=== PATIENT | male | born 1990 ===

== ENCOUNTER 2021-01-09 10:48 | Emergency (ER) | payer OTHER, SELFPAY ==
--- NOTE | 2021-01-09 | ECG_ITS ---
Test Reason : CHEST PAIN Blood Pressure : / mmHG Vent. Rate : 071 BPM Atrial Rate : 071 BPM P-R Int : 134 ms QRS Dur : 088 ms QT Int : 358 ms P-R-T Axes : 044 074 052 degrees QTc Int : 389 ms Normal sinus rhythm with sinus arrhythmia Normal ECG When compared to the previous EKG of No significant changes seen Referred By: Generic ED Physician Electronically Signed By:Watson Drake
--- NOTE | ~2021-01-09 | CT_ITS ---
EXAMINATION: CT ANGIOGRAM OF THE CHEST WITH AND WITHOUT CONTRAST (CT PULMONARY ANGIOGRAM FOR PE) CLINICAL INFORMATION: Reason for Exam L sided pleuritic pain COMPARISON: Chest x-ray of same day TECHNIQUE: Prior to contrast administration, noncontrast localization images were obtained. Subsequently, multidetector volumetric imaging was performed from the thoracic inlet to below the diaphragms following the administration of 57 mL Omnipaque 350 intravenous contrast. No contrast reaction reported Sagittal, coronal, and MIP oblique sagittal reformatted images were obtained on the CT workstation, uploaded to PACS, and reviewed. This CT examination was performed using dose optimization techniques as appropriate, variously including the following: *Automated exposure control *Adjustment of mA and/or kV according to patient size (this includes techniques or standardized protocols for targeted exams where dose is matched to indication/reason for exam; i.e. extremities or head) *Use of iterative reconstruction technique Total exam dose-length product 258 mGy-cm FINDINGS: QUALITY OF STUDY/CONTRAST BOLUS: Suboptimal. PULMONARY ARTERIES: No central or segmental pulmonary emboli. THORACIC AORTA: No aneurysm or dissection. LUNG: Central airways are patent. No confluent parenchymal disease. No significant bronchial wall thickening. No bronchiectasis. Subpleural calcification is seen in the left lower lobe likely representing calcified granuloma. PLEURA: No pleural effusion or pneumothorax. MEDIASTINUM: Normal heart size. No pericardial effusion. No hilar or mediastinal lymphadenopathy. No evidence of septal bowing or right heart strain. Visualized thyroid gland unremarkable. CHEST WALL/AXILLA: No internal mammary lymphadenopathy. There are prominent axillary lymph nodes seen bilaterally the largest measuring approximately 1 cm in short axis. OSSEOUS STRUCTURES: No acute or suspicious osseous abnormality. UPPER ABDOMEN: Unremarkable. No reflux of contrast into the hepatic veins to suggest elevated right heart pressures. CT/CT angio chest PE protocol IMPRESSION: No evidence of acute pulmonary artery embolus or thoracic aortic aneurysm or dissection. VTE: negative
--- NOTE | ~2021-01-09 | XR_ITS ---
EXAMINATION: XR CHEST CLINICAL INFORMATION: Cough COMPARISON: Chest radiograph 07/29/2017 TECHNIQUE: Frontal view of the chest was obtained. FINDINGS: No significant abnormality is noted involving the heart, lungs, mediastinum, bony thorax or soft tissues. XR/XR chest 1V IMPRESSION: Unremarkable examination.
[2021-01-09 11:23] VITALS: BP 116/67; PULSE 77; RESP 18; TEMP 37.1; O2SAT 100; BMI 23.3
--- NOTE | 2021-01-09 12:33 | ED_ITS ---
HPI - Headache General Chief Complaint: Headache Stated Complaint: headache, back pain Time Seen by Provider: 01/09/21 12:33 Source: patient Mode of arrival: ambulatory Limitations: no limitations History of Present Illness MD elicited complaint: headache and other (bites on flank) Onset (ago): day(s) (yesterday) Onset description: gradually and while at rest Location: left Severity: moderate Quality & Timing: sharp (radiated up from his back) and other (resolving now) Exacerbating factors: none Relieving factors: nothing Context: occurred at rest Associated symptoms: fever and other (body pain, bite on flank) Treatments prior to arrival: none Related Data Previous Rx's Medication Instructions Recorded cephalexin 500 mg PO BID 7 Days #14 cap 01/09/21 cyclobenzaprine 10 mg PO TID PRN #14 tab 01/09/21 doxycycline hyclate 100 mg PO BID 7 Days #14 cap 01/09/21 ibuprofen 600 mg PO Q6H PRN #30 tab 01/09/21 prednisone 40 mg PO DAILY 4 Days #8 tab 01/09/21 Allergies Allergy/AdvReac Type Severity Reaction Status Date / Time No Known Allergies Allergy Unverified 01/09/21 11:23 Review of Systems Review of Systems: Constitutional : No Weight loss, pos Fever, pos Chills, No Fatigue, No Malaise ENT/Mouth : No sore throat, No Rhinorrhea Eyes: No Eye Pain, No Swelling, No Redness Cardiovascular : No Chest Pain, No SOB, No Dyspnea on Exertion, No Orthopnea, No Edema, No Palpitations Respiratory : No Cough, No Sputum, No Wheezing Gastrointestinal : No Nausea, No Vomiting, No Diarrhea, No Constipation, No abdominal Pain, No Hematochezia, No Melena Genitourinary : No Dysuria, No Urinary Frequency, No Hematuria, Musculoskeletal : No joint pain, No Myalgias, No Joint Swelling Skin : pos Skin Lesions, No rash Neuro : No Weakness, No Numbness, No Dizziness, pos Headache Psych : No Anxiety/Panic, No Depression Heme/Lymph: No Bruising, No Bleeding,No Lymphadenopathy Endocrine : No Polyuria, No Polydipsia All other systems reviewed and are negative PMFSH Past Medical History Attestation statement: The following information was validated with the patient. Medical History (Updated 01/09/21 @ 16:31 by Ashley Gamez DO) No pertinent past medical history Social History Social History (Updated 01/09/21 @ 12:45 by Ashley Gamez DO) Alcohol intake: never Patient Tobacco Use Status: Never used Tobacco Use of substances other than those prescribed or required for medical reasons: No Substance Use Type: Marijuana Advance Directives: No Advance Directives Information Provided: No Physical Exam Vital Signs: Vital Signs: Last Vital Signs Temp 98.7 F 01/09/21 11:23 Pulse 61 01/09/21 14:34 Resp 16 01/09/21 14:34 BP 120/63 01/09/21 14:34 Pulse Ox 98 01/09/21 14:34 Body Mass Index 23.3 Appearance: Alert. Oriented X3. No acute distress. Eyes: Pupils equal, round and reactive to light. ENT: Pharynx normal. normal TMs Neck: Normal inspection. Neck supple. no meningeal signs CVS: Normal heart rate and rhythm. Pulses normal. Respiratory: No respiratory distress. Breath sounds normal. Back: two large raised red areas in large patches on L flank with diffuse erythem/no necrosis, pinpoint bite area in the center, ttp and warm to the touch, no abscess felt Abdomen: Soft and nontender. Skin: Skin warm and dry. Normal skin color. Normal skin turgor. Extremities: No lower extremity edema. No calf ttp Neuro: Oriented X 3. No motor deficit. No sensory deficit. Course Course Course Narrative: labs reassuring, VS stable, still c/o pain left ribs that are pleuritic in nature - CTA negative, UA pending states he feels better, no meningeal signs no headach still c/o L upper back pain that is pleuritic given it near theses bites will start on steroids and abx for possible secondary infection given WBC count and fevers at home, he also denies IVDA to me MDM - Headache MDM Narrative Medical decision making narrative: 30 yo male with very atypical presentation states he noted two bites yesterday on his left flank that are very painful, the pain radiates up to his head and he had a subj fever last night - unsure what bit him notes the pain moves up from the bites to his head so the entirety of that side including chest/neck hurt - this seems very atypical for ACS/PE, the bites themselves appear allergic with possible mild cellulitis superimposed, he has no neuro findings, no meningeal signs, notes his head feels better - seems unlikely to be [employer] infection or SAH, will provide prednisone/medications and reassess Lab Data Result diagrams: 01/09/21 12:52 01/09/21 12:52 Labs: Lab Results 01/09/21 01/09/21 01/09/21 Range/Units 12:52 12:52 12:52 WBC 13.4 H (4.8-10.8) X10*3/uL RBC 4.97 (4.60-5.80) X10*6/uL Hgb 14.8 (14.0-18.0) g/dl Hct 43.7 (42-52) % MCV 87.9 (80-98) fL MCH 29.8 (27.0-33.0) pg MCHC 33.9 (31.0-36.0) g/dl RDW 12.2 (11.0-16.0) % Plt Count 304 (160-400) X10*3/uL MPV 9.6 (9.4-12.4) fL Immature Gran % (Auto) 0.4 (0.0-0.4) % Neut % (Auto) 65.6 (45-73) % Lymph % (Auto) 24.8 (20-40) % [place] % (Auto) 8.2 (2-11) % Eos % (Auto) 0.6 (0-4) % Baso % (Auto) 0.4 (0-2) % Lymph # (Auto) 3.3 (1.2-4.9) X10*3/uL [place] # (Auto) 1.1 (0.1-1.2) X10*3/uL Eos # (Auto) 0.1 (0.0-0.4) X10*3/uL Baso # (Auto) 0.1 (0.0-0.2) X10*3/uL Abs Immat Gran (auto) 0.05 H (0.00-0.03) X10*3/uL Absolute Neuts (auto) 8.8 H (2.0-8.3) X10*3/uL Absolute Nucleated RBC 0.000 (0.0-0.012) X10*3/uL Nucleated RBC % (auto) 0.0 (0.0-0.2) /100WBC Sodium 140 (135-145) mmol/L Potassium 4.5 (3.3-5.1) mmol/L Chloride 106 (96-108) mmol/L Carbon Dioxide 24 (22-29) mmol/L Anion Gap 15 (12-20) BUN 8 L (9-16) mg/dL Creatinine 0.82 (0.5-1.4) mg/dL Estim Creat Clear Calc 121.0 Estimated GFR > 60 Random Glucose 75 (60-115) mg/dL Calcium 9.3 (8.4-10.2) mg/dL Magnesium 2.3 (1.6-2.6) mg/dL Total Bilirubin 0.8 (0.0-1.0) mg/dL Direct Bilirubin 0.3 (0.0-0.5) mg/dL AST 19 (5-37) U/L ALT 16 (0-40) U/L Alkaline Phosphatase 56 (39-117) U/L Troponin I High Sens < 3.5 (<3.5-35.0) ng/L Total Protein 7.3 (6.5-8.0) g/dL Albumin 4.4 (3.5-5.0) g/dL Lipase 18 (8-78) U/L Urine Color Urine Appearance Urine pH (5.0-8.0) Ur Specific Boutte (1.005-1.025) Urine Protein (NEG-TRACE) MG/DL Urine Glucose (UA) (NEG) MG/DL Urine Ketones (NEG) MG/DL Urine Blood (NEG) Urine Nitrite (NEG) Ur Leukocyte Esterase (NEG) COVID-19 (MELODIE) (Negative) COVID-19 Clin Com 01/09/21 01/09/21 Range/Units 12:52 16:19 WBC (4.8-10.8) X10*3/uL RBC (4.60-5.80) X10*6/uL Hgb (14.0-18.0) g/dl Hct (42-52) % MCV (80-98) fL MCH (27.0-33.0) pg MCHC (31.0-36.0) g/dl RDW (11.0-16.0) % Plt Count (160-400) X10*3/uL MPV (9.4-12.4) fL Immature Gran % (Auto) (0.0-0.4) % Neut % (Auto) (45-73) % Lymph % (Auto) (20-40) % [place] % (Auto) (2-11) % Eos % (Auto) (0-4) % Baso % (Auto) (0-2) % Lymph # (Auto) (1.2-4.9) X10*3/uL [place] # (Auto) (0.1-1.2) X10*3/uL Eos # (Auto) (0.0-0.4) X10*3/uL Baso # (Auto) (0.0-0.2) X10*3/uL Abs Immat Gran (auto) (0.00-0.03) X10*3/uL Absolute Neuts (auto) (2.0-8.3) X10*3/uL Absolute Nucleated RBC (0.0-0.012) X10*3/uL Nucleated RBC % (auto) (0.0-0.2) /100WBC Sodium (135-145) mmol/L Potassium (3.3-5.1) mmol/L Chloride (96-108) mmol/L Carbon Dioxide (22-29) mmol/L Anion Gap (12-20) BUN (9-16) mg/dL Creatinine (0.5-1.4) mg/dL Estim Creat Clear Calc Estimated GFR Random Glucose (60-115) mg/dL Calcium (8.4-10.2) mg/dL Magnesium (1.6-2.6) mg/dL Total Bilirubin (0.0-1.0) mg/dL Direct Bilirubin (0.0-0.5) mg/dL AST (5-37) U/L ALT (0-40) U/L Alkaline Phosphatase (39-117) U/L Troponin I High Sens (<3.5-35.0) ng/L Total Protein (6.5-8.0) g/dL Albumin (3.5-5.0) g/dL Lipase (8-78) U/L Urine Color YELLOW Urine Appearance CLEAR Urine pH 6.0 (5.0-8.0) Ur Specific Boutte <= 1.005 (1.005-1.025) Urine Protein NEG (NEG-TRACE) MG/DL Urine Glucose (UA) NEG (NEG) MG/DL Urine Ketones 40 (NEG) MG/DL Urine Blood NEG (NEG) Urine Nitrite NEG (NEG) Ur Leukocyte Esterase NEG (NEG) COVID-19 (MELODIE) Negative (Negative) COVID-19 Clin Com See Note ECG Data Attestation: I personally reviewed and interpreted this ECG as follows: ECG interpretation date: 01/09/21 ECG interpretation time: 12:33 Interpretation: Rate: 71 Rhythm: NSR [place]: normal Normal P waves. Normal KATY. Normal QRS complex. ST T wave : normal no KAVON t waves are tall in V3-V4 qTC: normal prior studies: no acute ischemia The study has been interpreted contemporaneously by me. . Discharge Plan Discharge Clinical Impression: Bite, Pain in rib Bug bite with infection Qualifiers: Encounter type: initial encounter Qualified Code(s): W57.XXXA - Bitten or stung by nonvenomous insect and other nonvenomous arthropods, initial encounter Patient Disposition: Home, Self-Care Instructions: Insect Bite or Sting (ED), Back Pain (ED) Additional Instructions: return to ED for any worsening symptoms or concerns Prescriptions: New cyclobenzaprine 10 mg tablet 10 mg PO TID PRN (Reason: muscle spasm) Qty: 14 RF: 0 doxycycline hyclate 100 mg capsule 100 mg PO BID 7 Days Qty: 14 RF: 0 prednisone 20 mg tablet 40 mg PO DAILY 4 Days Qty: 8 RF: 0 cephalexin 500 mg capsule 500 mg PO BID 7 Days Qty: 14 RF: 0 ibuprofen 600 mg tablet 600 mg PO Q6H PRN (Reason: pain) Qty: 30 RF: 0 Stand Alone Forms: Work/School Release Print Language: Korean
[2021-01-09 12:49] VITALS: BP 114/70; PULSE 69; RESP 18; O2SAT 98
[2021-01-09] MEDS: Cyclobenzaprine HCl 10 MG TABLET PO (13:05)
[2021-01-09] MEDS: predniSONE 20 MG TABLET 60 MG PO (13:05)
[2021-01-09] MEDS: Ibuprofen 600 MG TABLET PO (13:06)
[2021-01-09 13:10] LABS: MANUAL DIFF FLAG NO
[2021-01-09 13:11] LABS: Basophils Absolute Auto 0.1 X10*3/uL (0.0-0.2); Basophils Percent Auto 0.4 % (0-2); Eosinophils Absolute Auto 0.1 X10*3/uL (0.0-0.4); Eosinophils Percent Auto 0.6 % (0-4); Hematocrit 43.7 % (42-52); Hemoglobin 14.8 g/dl (14.0-18.0); Imm Gran Abs Auto 0.05 X10*3/uL (0.00-0.03); Imm Gran Pct Auto 0.4 % (0.0-0.4); Lymphocytes Absolute Auto 3.3 X10*3/uL (1.2-4.9); Lymphocytes Percent Auto 24.8 % (20-40); Mean Corpuscular HGB Conc 33.9 g/dl (31.0-36.0); Mean Corpuscular Hemoglobin 29.8 pg (27.0-33.0); Mean Corpuscular Volume 87.9 fL (80-98); Mean Platelet Volume 9.6 fL (9.4-12.4); Monocytes Absolute Auto 1.1 X10*3/uL (0.1-1.2); Monocytes Percent Auto 8.2 % (2-11); Neutrophils Absolute Auto 8.8 X10*3/uL (2.0-8.3); Neutrophils Percent Auto 65.6 % (45-73); Platelet Count 304 X10*3/uL (160-400); Red Blood Count 4.97 X10*6/uL (4.60-5.80); Red Cell Distribution Width 12.2 % (11.0-16.0); White Blood Count 13.4 X10*3/uL (4.8-10.8)
[2021-01-09 13:35] LABS: COVID-19 Test Negative (Negative); IDNOW Serial# 9DD0AD1C
[2021-01-09 13:41] LABS: Alanine Aminotransferase 16 U/L (0-40); Albumin Level 4.4 g/dL (3.5-5.0); Alkaline Phosphatase 56 U/L (39-117); Anion Gap 15 (12-20); Aspartate Amino Transferase 19 U/L (5-37); Bilirubin Direct 0.3 mg/dL (0.0-0.5); Bilirubin Total 0.8 mg/dL (0.0-1.0); Blood Urea Nitrogen 8 mg/dL (9-16); Calcium 9.3 mg/dL (8.4-10.2); Carbon Dioxide 24 mmol/L (22-29); Chloride 106 mmol/L (96-108); Estimated Glomerular Filt Rate > 60; Glucose Random 75 mg/dL (60-115); Lipase 18 U/L (8-78); Magnesium 2.3 mg/dL (1.6-2.6); Potassium 4.5 mmol/L (3.3-5.1); Sodium 140 mmol/L (135-145); Total Protein 7.3 g/dL (6.5-8.0); Troponin-I High Sensitivity < 3.5 ng/L (<3.5-35.0)
[2021-01-09 14:34] VITALS: BP 120/63; PULSE 61; RESP 16; O2SAT 98
[2021-01-09] MEDS: iohexoL 350 MG/ML 100 ML INFUS..BTL IV (15:33)
[2021-01-09 16:29] LABS: Glucose Urine UA NEG (NEG); Leukocyte Esterase Urine NEG (NEG); Nitrite Urine NEG (NEG); Specific Gravity - Urine <= 1.005 (1.005-1.025); Urine Blood NEG (NEG); Urine Ketones 40 MG/DL (NEG); Urine Protein NEG (NEG-TRACE)
[2021-01-09 16:30] VITALS: BP 112/60; PULSE 56; RESP 16; O2SAT 99
[2021-01-09 16:30] LABS: Appearance Urine CLEAR; Color Urine YELLOW
== END 2021-01-09 16:50 | disposition home or self-care (01) ==
PROVIDERS: Emergency Provider Emergency Medicine; PCP Internal Medicine
DX: S30.860A Insect bite (nonvenomous) of lower back and pelvis, initial encounter (principal); R07.81 Pleurodynia; W57.XXXA Bitten or stung by nonvenomous insect and other nonvenomous arthropods, initial encounter; Y93.9 Activity, unspecified; Y92.9 Unspecified place or not applicable; Y99.9 Unspecified external cause status; Z20.822 Contact with and (suspected) exposure to COVID-19
CPT/HCPCS: 36415; 71045; 71275; 80048; 80076; 81003; 83690; 83735; 84484; 85025; 87635; 93005; 99285; Q9967

== ENCOUNTER 2022-05-12 09:28 | Emergency (ER) | payer OTHER, SELFPAY ==
--- NOTE | ~2022-05-12 | XR_ITS ---
EXAMINATION: XR CHEST CLINICAL INFORMATION: Positive RSV cough, fevers. COMPARISON: 01/09/2021 chest radiograph. TECHNIQUE: 2 views of the chest were obtained. FINDINGS: No significant abnormality is noted involving the heart, lungs, mediastinum, bony thorax or soft tissues. XR/XR chest 2V IMPRESSION: No acute cardiopulmonary process.
[2022-05-12 09:43] VITALS: BP 122/59; PULSE 75; RESP 18; TEMP 36.8; O2SAT 99; BMI 25.8
[2022-05-12 10:45] LABS: Influenza A PCR NEGATIVE (Negative); Influenza B PCR NEGATIVE (Negative); Resp Syncy Virus RNA Qual PCR POSITIVE (Negative); SARS COV2 PCR INHOUSE NEGATIVE (Negative)
--- NOTE | 2022-05-12 12:27 | ED_ITS ---
HPI - URI/Sore Throat General Chief Complaint: Upper Respiratory Symptoms Stated Complaint: Stuffy Nose Fever Time Seen by Provider: 05/12/22 12:10 Source: patient Mode of arrival: ambulatory Limitations: language barrier (Cymraes-speaking) History of Present Illness HPI Narrative: 31yoM c PMHx of asthma presenting to the ER with complaints of subjective fevers, chills, fatigue, malaise, nasal congestion/rhinorrhea, sore throat, ear pain, dry cough that started last night worse today. Reports that he seen his friend the other day and he gave him a handshake and he notices friend's hand ?was hot?. Therefore he has his friend ?why do you feel so hot?. His friend responded ?I just got over a sickness?. Patient reports he believes he might of got sick from with ever he had. He reports he took some NyQuil although was unable to sleep well last night due to all the nasal congestion and coughing. He denies any measured fevers, dizziness, headache, neck pain/stiffness, trouble swallowing or breathing, chest pain or shortness of breath, dyspnea on exertion, orthopnea, palpitations paresthesias, nausea/vomiting/diarrhea constipation, black or bloody stools, abdominal pain, recent travel or any other symptoms complaints or concerns at this time. MD elicited complaint: fever, cough, sore throat, rhinorrhea and nasal congestion Onset (ago): day(s) (2) Consistency: constant and progressively worsening Severity: mild Description of mucous: clear, watery and yellow Able to tolerate fluids by mouth: Yes Exacerbating factors: nothing Relieving factors: nothing Context: sick contacts Associated symptoms: fever, chills, myalgias, rhinorrhea, nasal congestion, sore throat, cough and ear pain Treatments prior to arrival: other (See above) Related Data Previous Rx's Medication Instructions Recorded cephalexin 500 mg capsule 500 mg PO BID 7 days #14 caps 01/09/21 cyclobenzaprine 10 mg tablet 10 mg PO TID PRN muscle spasm #14 01/09/21 tabs doxycycline hyclate 100 mg capsule 100 mg PO BID 7 days #14 caps 01/09/21 ibuprofen 600 mg tablet 600 mg PO Q6H PRN pain #30 tabs 01/09/21 prednisone 20 mg tablet 40 mg PO DAILY 4 days #8 tabs 01/09/21 amoxicillin 875 mg-potassium 1 tab PO BID Bacterial pharyngitis 05/12/22 clavulanate 125 mg tablet 10 days #20 tabs codeine 10 mg-guaifenesin 100 mg/5 5 ml PO Q6H PRN cold symptoms #120 05/12/22 mL oral liquid (Guaifenesin AC) mL Allergies Allergy/AdvReac Type Severity Reaction Status Date / Time No Known Allergies Allergy Unverified 01/09/21 11:23 Review of Systems Review of Systems: Constitutional : + subjective fevers/chills/fatigue/malaise, No Weight loss, No Night Sweats ENT/Mouth : + sore throat/nasal congestion/rhinorrhea/ear pain No Hearing loss, No Sinus Pain, No Hoarseness, No Swallowing Difficulty Eyes: No Eye Pain, No Swelling, No Redness, No Foreign Body, No Discharge, No Vision Changes Cardiovascular : No Chest Pain, No SOB, No Dyspnea on Exertion, No Orthopnea, No Edema, No Palpitations Respiratory : + Cough, No Sputum, No Wheezing, No Smoke Exposure, No Dyspnea Gastrointestinal : No Nausea, No Vomiting, No Diarrhea, No Constipation, No abdominal Pain, No Hematochezia, No Melena Genitourinary : no irregular bleeding, No Dysuria, No Urinary Frequency, No Hematuria, No Urinary Incontinence, No Urgency, No Flank Pain, No Urinary Flow Changes, No Hesitancy Musculoskeletal : No joint pain, + Myalgias, No Joint Swelling Skin : No Skin Lesions, No rash Neuro : No Weakness, No Numbness, No Paresthesias, No Loss of Consciousness, No Dizziness, No Headache Psych : No Anxiety/Panic, No Depression, No SI/HI/AH/VH, No Social Issues, Heme/Lymph: No Bruising, No Bleeding,No Lymphadenopathy Endocrine : No Polyuria, No Polydipsia, No Temperature Intolerance Yes all other systems are reviewed and are negative [facility] Past Medical History Attestation statement: The following information was validated with the patient. Source: old records reviewed and nursing notes reviewed Medical History No pertinent past medical history Social History Social History Alcohol intake: never Patient Tobacco Use Status: Never used Tobacco Substance Use Type: Marijuana Advance Directives: No Physical Exam Vital Signs: Vital Signs: Last Vital Signs Temp 98.3 F 05/12/22 09:43 Pulse 75 05/12/22 09:43 Resp 18 05/12/22 09:43 BP 122/59 L 05/12/22 09:43 Pulse Ox 99 05/12/22 09:43 O2 Del Method 05/12/22 09:43 BMI result Body Mass Index 25.8 vital signs have been reviewed as normal and appeared to be correct. Blood pressure 122/59. Heart rate normal. Respiration rate normal. Temperature normal. Oxygen saturation normal. Appearance: Alert. Oriented X3. No acute distress. Head: Normal external exam. Normocephalic. Atraumatic. Eyes: PERRLA. EOMI. Conjunctiva and sclera normal. Eyelids normal. ENT: EAC normal. TM's Normal. Pharynx normal. Posterior pharynx/tonsils erythematous although no exudate is noted. Uvula midline. Moist mucous membranes. No lesions/ulcerations or masses noted on the tongue. Normal voice. No trismus noted. No drooling noted. No muffled voice noted. Neck: Normal inspection. Neck supple. FROM. No adenopathy. Thyroid Normal. No tracheal deviation noted. No crepitus is noted. No meningeal signs. No neck mass noted. No signs of trauma noted. CVS: Normal heart rate and rhythm. Heart sound normal. Pulses normal throughout. No murmurs/rales/gallops. Respiratory: No respiratory distress. Painless inspiration. Breath sounds normal. No wheezes/rales/rhonchi noted. Chest nontender. No crepitus is noted. No accessory muscle usage noted or decreased air movement noted. No signs of trauma. Back: Full range of motion noted. Nontender. Skin: Skin warm and dry. Normal skin color. Normal skin turgor. No rashes/lesions/lacerations noted. Extremities: Extremities exhibit normal range of motion and nontender. Neuro: Oriented X 3. No motor deficit. No sensory deficit. Reflexes normal. Normal steady gait. CN's II-XII intact bilaterally? Course Course Course Narrative: 12:20pm - 31yoM c PMHx of asthma presenting to the ER with complaints of subjective fevers, chills, fatigue, malaise, nasal congestion/rhinorrhea, sore throat, ear pain, dry cough that started last night worse today. Reports that he seen his friend the other day and he gave him a handshake and he notices friend's hand ?was hot?. Therefore he has his friend ?why do you feel so hot?. His friend responded ?I just got over a sickness?. Patient reports he believes he might of got sick from with ever he had. He reports he took some NyQuil although was unable to sleep well last night due to all the nasal congestion and coughing. Patient negative for COVID/flu. Patient positive for RSV. Plan: Will obtain a chest x-ray and strep and re-evaluate. Reevaluation(s) Reevaluation #1: Patient strep is positive. Chest x-ray within normal limits. Therefore at this time will DC home with antibiotics and symptomatic treatment instructions return if any new or worsening symptoms follow up with primary care provider. Patient understands agrees with this plan. Time: 13:26 MDM - URI/Sore Throat Medical Records Attestation: I reviewed the patient's medical records. Lab Data Attestation: I reviewed the patient's lab results. Labs: Lab Results 05/12/22 05/12/22 Range/Units 09:48 12:22 Influenza Type A (PCR) NEGATIVE (Negative) Influenza Type B (PCR) NEGATIVE (Negative) RSV RNA Qual (PCR) POSITIVE A (Negative) SARS-CoV-2 RNA (RT-PCR) NEGATIVE (Negative) S. pyogenes GrpA RUBEN Positive A (Negative) Imaging Data Chest x-ray: Attestation: I personally reviewed and interpreted this imaging study as follows: Radiologist's impression: FINDINGS: No significant abnormality is noted involving the heart, lungs, mediastinum, bony thorax or soft tissues. XR/XR chest 2V IMPRESSION: No acute cardiopulmonary process. Discharge Plan Discharge Clinical Impression: RSV bronchitis, Acute bacterial pharyngitis Patient Disposition: Home, Self-Care Instructions: Respiratory Syncytial Virus (ED), Pharyngitis (ED), Acute Bronchitis (ED) Prescriptions: New amoxicillin-pot clavulanate 875-125 mg tablet 1 tab PO BID 10 Days Qty: 20 0RF codeine-guaifenesin [Guaifenesin AC] 10-100 mg/5 mL liquid 5 ml PO Q6H PRN (Reason: cold symptoms) Qty: 120 0RF No Action cyclobenzaprine 10 mg tablet 10 mg PO TID PRN (Reason: muscle spasm) Qty: 14 0RF doxycycline hyclate 100 mg capsule 100 mg PO BID 7 Days Qty: 14 0RF prednisone 20 mg tablet 40 mg PO DAILY 4 Days Qty: 8 0RF cephalexin 500 mg capsule 500 mg PO BID 7 Days Qty: 14 0RF ibuprofen 600 mg tablet 600 mg PO Q6H PRN (Reason: pain) Qty: 30 0RF Referrals: Physician,Unknown J [Primary Care Provider] - 2 days (your pcp) Stand Alone Forms: Work/School Release Print Language: Cymraes
[2022-05-12 12:35] LABS: Strep A Nucleic Acid Positive (Negative)
== END 2022-05-12 13:30 | disposition home or self-care (01) ==
PROVIDERS: Physician Assistant Medical; Emergency Provider Emergency Medicine Emergency Medical Services
DX: J20.5 Acute bronchitis due to respiratory syncytial virus (principal); J02.8 Acute pharyngitis due to other specified organisms; R50.9 Fever, unspecified; M79.10 Myalgia, unspecified site; R05.9 Cough, unspecified; Z20.822 Contact with and (suspected) exposure to COVID-19; Z79.899 Other long term (current) drug therapy
CPT/HCPCS: 0241U; 36415; 71046; 87651; 99283; 99284

== ENCOUNTER 2022-07-17 11:59 | Emergency (ER) | payer OTHER, SELFPAY ==
--- NOTE | 2022-07-17 12:03 | ED.URI ---
HPI - URI/Sore Throat General Chief Complaint: Upper Respiratory Symptoms Stated Complaint: Fly Symptoms Time Seen by Provider: 07/17/22 13:36 Source: patient Mode of arrival: ambulatory Limitations: no limitations History of Present Illness HPI Narrative: Patient is a 31-year-old male presenting to emergency department with complaints of cough, fever, dizziness, weakness since yesterday. Took APAP last night without improvement. His significant other is currently ill, having the same symptoms and was exposed to a COVID-19 positive person. Will require a return to work note. Related Data Previous Rx's Medication Instructions Recorded cephalexin 500 mg capsule 500 mg PO BID 7 days #14 caps 01/09/21 cyclobenzaprine 10 mg tablet 10 mg PO TID PRN muscle spasm #14 01/09/21 tabs doxycycline hyclate 100 mg capsule 100 mg PO BID 7 days #14 caps 01/09/21 ibuprofen 600 mg tablet 600 mg PO Q6H PRN pain #30 tabs 01/09/21 prednisone 20 mg tablet 40 mg PO DAILY 4 days #8 tabs 01/09/21 amoxicillin 875 mg-potassium 1 tab PO BID Bacterial pharyngitis 05/12/22 clavulanate 125 mg tablet 10 days #20 tabs codeine 10 mg-guaifenesin 100 mg/5 5 ml PO Q6H PRN cold symptoms #120 05/12/22 mL oral liquid (Guaifenesin AC) mL Allergies Allergy/AdvReac Type Severity Reaction Status Date / Time No Known Allergies Allergy Verified 07/17/22 12:13 Review of Systems Review of Systems: Constitutional: Positive subjective fever. No chills. Positive weakness. Positive fatigue. ENT/ Mouth: No Ear Pain, positive Nasal Congestion, no sore throat, No Rhinorrhea, No Swallowing Difficulty Skin: No rash or itching. Cardiovascular: No chest pain. No palpitations. Respiratory: No shortness of breath. Positive cough. No sputum production. Gastrointestinal: No nausea. No vomiting. No diarrhea. No abdominal pain. Genitourinary: No burning micturition. No urinary frequency. Neurologic: No headache.. No syncope. No numbness or tingling in the extremities. Musculoskeletal: No muscle pain. No back pain. No joint pain or stiffness. Yes all other systems are reviewed and are negative PMFSH Past Medical History Attestation statement: The following information was validated with the patient. Source: old records reviewed Medical History No pertinent past medical history Social History Social History Alcohol intake: never Patient Tobacco Use Status: Never used Tobacco Substance Use Type: Marijuana Advance Directives: No Advance Directives Information Provided: Yes Physical Exam Vital Signs: Vital Signs: Last Vital Signs Temp 98.3 F 07/17/22 12:13 Pulse 68 07/17/22 12:13 Resp 16 07/17/22 12:13 BP 107/68 07/17/22 12:13 Pulse Ox 98 07/17/22 12:13 O2 Del Method 07/17/22 12:13 BMI result Body Mass Index 24.2 Appearance: Alert.?Oriented to person, place and time. No acute distress.?Normal affect. Eyes: Pupils equal, round and reactive to light.? ENT: TM normal bilaterally. Pharynx normal.?? Neck: Normal inspection.? Neck supple.??No cervical adenopathy CVS: Heart sounds normal. Normal heart rate and rhythm.? Pulses normal.?? Respiratory: No respiratory distress.? Lung sounds clear to auscultation bilaterally?? Abdomen: Soft and non-tender. Normoactive bowel sounds. Skin: Skin warm and dry.? Normal skin color.? ? Extremities: No lower extremity edema.? Neuro: Moves all extremities spontaneously. Sensation intact bilaterally. No motor deficits. Ambulates with normal steady gait. Medications Administered Discontinued Medications Generic Name Dose Route Start Last Admin Trade Name Chenchoq PRN Reason Stop Dose Admin Ibuprofen 600 mg 07/17/22 12:14 07/17/22 12:17 Ibuprofen 600 Mg Tablet PO 07/17/22 12:15 600 mg ONCE ONE Administration Medical Decision Making Medical Decision Making MDM Narrative: Patient is a 31-year-old male with no reported past medical history, presenting for evaluation of upper respiratory symptoms. COVID-19 testing negative, however given recent exposure and significant other being COVID-19 positive it was recommended that he have repeat testing within the next 2 days if his symptoms persist. Influenza testing negative. At this time history and physical exam not consistent with ACS/PE/pneumonia. Well-appearing, nontoxic, afebrile, no tachycardia or tachypnea/hypoxia. Speaking clear full sentences, ambulatory with steady gait. Discussed conservative treatment including rest, hydration, Tylenol/ibuprofen as needed for fever and body aches, saline nasal spray, humidifier, [id number] cold medication. Advised to follow-up with primary care provider as needed, discussed reasons to return back to the emergency department. All questions were answered. Patient discharged home in stable condition. Provided with a return to work/school note. Differential Diagnosis Differential Diagnoses: The differential diagnosis associated with the presentation includes (COVID-19, influenza, pneumonia, viral upper respiratory infection) Lab Data MDM Lab Attestation statement: I reviewed the patient's lab results. Labs: Lab Results 07/17/22 07/17/22 Range/Units 12:22 12:22 COVID-19 (MELODIE) Negative (Negative) COVID-19 Clin Com See Note Influenza Type A (RUBEN) Negative (Negative) Influenza Type B (RUBEN) Negative (Negative) Influenza A & B Note See Note Discharge Plan Discharge Clinical Impression: Upper respiratory infection Patient Disposition: Home, Self-Care Instructions: Upper Respiratory Infection (ED) Additional Instructions: At this time your COVID-19 testing and influenza testing are negative. However given your exposure to COVID-19 you should consider retesting in 2 days. Be sure to rest, stay well hydrated drinking plenty of fluids, eat small frequent meals. Tylenol/ibuprofen can be used as needed for fever/pain. [id number] cold medications may be helpful as well for symptoms. Saline nasal spray, humidifier may be helpful for nasal congestion. You may return to the emergency department with any new or worsening symptoms or concerns. Follow-up with your primary care provider as needed. Should remain out of school/ work until symptoms have resolved and have been without a fever for 24 hours without the use of Tylenol or ibuprofen. Prescriptions: No Action cyclobenzaprine 10 mg tablet 10 mg PO TID PRN (Reason: muscle spasm) Qty: 14 0RF doxycycline hyclate 100 mg capsule 100 mg PO BID 7 Days Qty: 14 0RF prednisone 20 mg tablet 40 mg PO DAILY 4 Days Qty: 8 0RF cephalexin 500 mg capsule 500 mg PO BID 7 Days Qty: 14 0RF ibuprofen 600 mg tablet 600 mg PO Q6H PRN (Reason: pain) Qty: 30 0RF amoxicillin-pot clavulanate 875-125 mg tablet 1 tab PO BID 10 Days Qty: 20 0RF codeine-guaifenesin [Guaifenesin AC] 10-100 mg/5 mL liquid 5 ml PO Q6H PRN (Reason: cold symptoms) Qty: 120 0RF Referrals: Physician,Unknown J [Primary Care Provider] - Stand Alone Forms: Work/School Release
[2022-07-17 12:13] VITALS: BP 107/68; PULSE 68; RESP 16; TEMP 36.8; O2SAT 98; BMI 24.2
[2022-07-17] MEDS: Ibuprofen 600 MG TABLET PO (12:17)
[2022-07-17 12:42] LABS: COVID-19 Test Negative (Negative); IDNOW Serial# 55D5AD1C
[2022-07-17 13:01] LABS: IDNOW Serial# BCCEAD1C; Influenza A Negative (Negative); Influenza B2 Negative (Negative)
== END 2022-07-17 13:56 | disposition home or self-care (01) ==
PROVIDERS: Nurse Practitioner Family; Emergency Provider Student in an Organized Health Care Education/Training Program
DX: J06.9 Acute upper respiratory infection, unspecified (principal); R05.9 Cough, unspecified; R50.9 Fever, unspecified; Z20.822 Contact with and (suspected) exposure to COVID-19
CPT/HCPCS: 87502; 87635; 99283

== ENCOUNTER 2023-03-13 09:02 | Emergency (ER) | payer OTHER, SELFPAY ==
[2023-03-13 09:19] VITALS: BP 111/67; PULSE 70; RESP 18; TEMP 36.7; O2SAT 99; BMI 26.2
[2023-03-13] MEDS: Throat Lozenge, Medicated LOZENGE 1 LOZENGE MUCOUS MEM (10:02)
[2023-03-13] MEDS: Ibuprofen 400 MG TABLET PO (10:02)
[2023-03-13] MEDS: Acetaminophen 325 MG TABLET 975 MG PO (10:02)
[2023-03-13 10:15] VITALS: BP 117/68; PULSE 61; RESP 14; TEMP 36.7; O2SAT 98
[2023-03-13 10:21] LABS: IDNOW Serial# 08D9AD1C; Strep A Nucleic Acid Negative (Negative)
[2023-03-13 10:25] LABS: COVID-19 Test Negative (Negative); IDNOW Serial# BCCEAD1C
--- NOTE | 2023-03-13 10:28 | ED.EAR ---
HPI - Ear Problem General Chief complaint: Ear Problems Stated complaint: R ear pain Time Seen by Provider: 03/13/23 09:39 Source: patient Mode of arrival: ambulatory History of Present Illness HPI Narrative: 32-year-old male who comes in with 2 days of pain behind his right ear without fevers and chills and states he has also had sore throat. He denies any dental pain. Related Data Previous Rx's Medication Instructions Recorded cephalexin 500 mg capsule 500 mg PO BID 7 days #14 caps 01/09/21 cyclobenzaprine 10 mg tablet 10 mg PO TID PRN muscle spasm #14 01/09/21 tabs doxycycline hyclate 100 mg capsule 100 mg PO BID 7 days #14 caps 01/09/21 ibuprofen 600 mg tablet 600 mg PO Q6H PRN pain #30 tabs 01/09/21 prednisone 20 mg tablet 40 mg PO DAILY 4 days #8 tabs 01/09/21 amoxicillin 875 mg-potassium 1 tab PO BID Bacterial pharyngitis 05/12/22 clavulanate 125 mg tablet 10 days #20 tabs codeine 10 mg-guaifenesin 100 mg/5 5 ml PO Q6H PRN cold symptoms #120 05/12/22 mL oral liquid (Guaifenesin AC) mL Allergies Allergy/AdvReac Type Severity Reaction Status Date / Time No Known Allergies Allergy Verified 07/17/22 12:13 Review of Systems Review of Systems: Pertinent positives and negatives as stated in HPI [facility] Past Medical History Source: nursing notes reviewed Medical History No pertinent past medical history Social History Social History Alcohol intake: never Patient Tobacco Use Status: Never used Tobacco Smoked in Last 30 Days: Yes Use of substances other than those prescribed or required for medical reasons: No Substance Use Type: Marijuana Advance Directives: No Advance Directives Information Provided: No Physical Exam Vital Signs: Vital Signs: Last Vital Signs Temp 98.0 F 03/13/23 10:15 Pulse 61 03/13/23 10:15 Resp 14 03/13/23 10:15 BP 117/68 03/13/23 10:15 Pulse Ox 98 03/13/23 10:15 O2 Del Method Room Air 03/13/23 10:15 BMI result Body Mass Index 26.2 VITAL SIGNS: Reviewed. GENERAL: Well developed, well nourished, in no acute distress. HEAD: Normocephalic/atraumatic EYES: PERRLA, EOMI EARS: Ext canals without abnormality, TMs non-bulging and non-erythematous, there is mild tenderness to palpation posterior to the right ear without erythema or induration, there are palpable subcentimeter nodes without obvious scalp infection. No pain on manipulation of the right pinna NOSE: Nares patent bilateral OROPHARYNX: no oral lesions noted, posterior pharynx clear but with erythema without noted tonsillar enlargement/erythema/exudates, no noted dental caries NECK: Supple, no adenopathy LUNGS: Normal breath sounds. No adventitious sounds or accessory muscle use. SpO2<98> CARDIOVASCULAR: Regular rate and rhythm without noted murmurs ABDOMEN: Soft, non-tender, non-distended with bowel sounds. MUSCULOSKELETAL: No tenderness, deformities, or effusions noted on gross inspection. EXTREMITIES: No cyanosis, clubbing or edema. SKIN: Inspection of the skin reveals no rashes, ulcerations, jaundice, pallor, or petechiae. NEUROLOGIC: Alert and oriented x 4. Strength and sensation to light touch were grossly intact x 4. Medications Administered Discontinued Medications Generic Name Dose Route Start Last Admin Trade Name Freq PRN Reason Stop Dose Admin Acetaminophen 975 mg 03/13/23 09:51 03/13/23 10:02 Acetaminophen 325 Mg Tablet PO 03/13/23 09:52 975 mg ONCE ONE Administration Benzocaine 1 lozenge 03/13/23 09:51 03/13/23 10:02 Throat Lozenge, Medicated Lozenge MUCOUS MEM 03/13/23 09:52 1 lozenge ONCE ONE Administration Ibuprofen 400 mg 03/13/23 09:51 03/13/23 10:02 Ibuprofen 400 Mg Tablet PO 03/13/23 09:52 400 mg ONCE ONE Administration Medical Decision Making Medical Decision Making MDM Narrative: 32-year-old male with history and clinical presentation, DDX: Strep pharyngitis, viral pharyngitis, COVID. Patient was given combination analgesics, Cepacol, review of all investigations demonstrates negative strep or COVID. Suspect viral in nature, no evidence of AOM. He is otherwise discharged home. Differential Diagnosis Differential Diagnoses: The differential diagnosis associated with the presentation includes Please see the discussion above Admission/Observation Consideration of admission/observation: Escalation of care including admission/observation considered Please see the discussion above Lab Data MDM Lab Attestation statement: I reviewed the patient's lab results. Please see the discussion above Labs: Lab Results 03/13/23 03/13/23 Range/Units 10:07 10:07 COVID-19 (MELODIE) Negative (Negative) COVID-19 Clin Com See Note S. pyogenes GrpA RUBEN Negative (Negative) Discharge Plan Discharge Clinical Impression: Viral illness, Postauricular adenopathy Patient Disposition: Home, Self-Care Instructions: Lymphadenopathy (ED), Viral Syndrome (ED), Warm Compress or Soak (ED) Additional Instructions: 1. Recommend warm compresses, [id number] Tylenol/ibuprofen as needed for pain control. All testing today has been negative for strep or COVID and your right ear does not appear to be infected. 2. Follow-up with your primary care provider Wednesday. Return to the ER for any worsening symptoms. Prescriptions: No Action cyclobenzaprine 10 mg tablet 10 mg PO TID PRN (Reason: muscle spasm) Qty: 14 0RF doxycycline hyclate 100 mg capsule 100 mg PO BID 7 Days Qty: 14 0RF prednisone 20 mg tablet 40 mg PO DAILY 4 Days Qty: 8 0RF cephalexin 500 mg capsule 500 mg PO BID 7 Days Qty: 14 0RF ibuprofen 600 mg tablet 600 mg PO Q6H PRN (Reason: pain) Qty: 30 0RF amoxicillin-pot clavulanate 875-125 mg tablet 1 tab PO BID 10 Days Qty: 20 0RF codeine-guaifenesin [Guaifenesin AC] 10-100 mg/5 mL liquid 5 ml PO Q6H PRN (Reason: cold symptoms) Qty: 120 0RF Referrals: Yany Sorto MD [Primary Care Provider] -
== END 2023-03-13 10:49 | disposition home or self-care (01) ==
PROVIDERS: Emergency Provider Student in an Organized Health Care Education/Training Program; PCP Internal Medicine
DX: H70.811 Postauricular fistula, right ear (principal); H92.01 Otalgia, right ear; Z20.822 Contact with and (suspected) exposure to COVID-19
CPT/HCPCS: 87635; 87651; 99283; 99284